=== PATIENT | male | born 1965 | race Caucasian/White ===

== ENCOUNTER 2016-07-26 13:02 | Outpatient (CLI) | payer MEDICAID | END 2016-07-26 13:03 | disposition home or self-care (01) | DX: I25.10 Atherosclerotic heart disease of native coronary artery without angina pectoris (principal); I35.0 Nonrheumatic aortic (valve) stenosis; I10 Essential (primary) hypertension; E78.00 Pure hypercholesterolemia, unspecified; R01.1 Cardiac murmur, unspecified ==

== ENCOUNTER 2016-08-24 13:38 | Outpatient (CLI) | payer MEDICAID | END 2016-08-24 13:39 | disposition short-term general hospital (02) | DX: R07.9 Chest pain, unspecified (principal) | CPT/HCPCS: A0425; A0433 ==

== ENCOUNTER 2016-09-03 23:23 | Outpatient (CLI) | payer MEDICAID | END 2016-09-03 23:24 | disposition short-term general hospital (02) | LOC: EMS 23:23 | PROVIDERS: ATTEND Surgery | DX: R10.30 Lower abdominal pain, unspecified (principal); R22.9 Localized swelling, mass and lump, unspecified | CPT/HCPCS: A0425; A0429 ==

== ENCOUNTER 2016-09-28 09:58 | Outpatient (CLI) | payer MEDICAID ==
[2016-09-28 13:12] LABS: CALCIUM 9.4 mg/dL (8.5-10.3); POTASSIUM 4.5 mmol/L (3.5-5.0)
== END 2016-09-28 09:59 | disposition home or self-care (01) ==
LOC: LAB.N 09:58
PROVIDERS: ATTEND Internal Medicine Cardiovascular Disease
DX: I21.19 ST elevation (STEMI) myocardial infarction involving other coronary artery of inferior wall (principal); I72.9 Aneurysm of unspecified site; Z95.5 Presence of coronary angioplasty implant and graft; I25.5 Ischemic cardiomyopathy
CPT/HCPCS: 36415; 80048

== ENCOUNTER 2016-12-28 10:05 | Outpatient (CLI) | payer MEDICAID, OTHER ==
[2016-12-28 13:32] LABS: CALCIUM 9.6 mg/dL (8.5-10.3); POTASSIUM 4.4 mmol/L (3.5-5.0)
== END 2016-12-28 10:06 | disposition home or self-care (01) ==
LOC: LAB.N 10:05
PROVIDERS: ATTEND Internal Medicine Cardiovascular Disease
DX: I10 Essential (primary) hypertension (principal); I25.5 Ischemic cardiomyopathy; I35.0 Nonrheumatic aortic (valve) stenosis; Z95.5 Presence of coronary angioplasty implant and graft; E78.00 Pure hypercholesterolemia, unspecified
CPT/HCPCS: 36415; 80048

== ENCOUNTER 2017-03-22 11:36 | Outpatient (CLI) | payer OTHER ==
[2017-03-22 19:13] LABS: POTASSIUM 4.2 mmol/L (3.5-5.0)
== END 2017-03-22 11:37 | disposition home or self-care (01) ==
LOC: LAB.N 11:36
PROVIDERS: ATTEND Internal Medicine Cardiovascular Disease
DX: I25.5 Ischemic cardiomyopathy (principal); I35.0 Nonrheumatic aortic (valve) stenosis; Z95.5 Presence of coronary angioplasty implant and graft; I10 Essential (primary) hypertension; E78.00 Pure hypercholesterolemia, unspecified
CPT/HCPCS: 36415; 80048